=== PATIENT | female | born 1980 | race Two or more races ===

== ENCOUNTER → 2024-04-05 | Outpatient (CLI) | payer OTHER ==
[2024-04-05 13:33] LABS: Basophils # (auto) 0 10 ^3/uL (0-0.2); Basophils % (auto) 0.5 % (0.0-2.0); Eosinophils # (auto) 0 10 ^3/uL (0-0.8); Eosinophils % (auto) 0.7 % (0.0-7.0); Hematocrit 41.1 % (36.0-46.0); Hemoglobin 14.1 g/dL (12.2-16.2); Lymphocytes # (auto) 1.1 10 ^3/uL (0.4-5.4); Lymphocytes % (auto) 17.2 % (10.0-50.0); Mean Corpuscular Hemoglobin 31.5 pg (28.0-32.0); Mean Corpuscular Hgb Conc. 34.4 g/dL (32.0-36.0); Mean Corpuscular Volume 91.4 fL (80.0-100.0); Monocytes # (auto) 0.4 10 ^3/uL (0-1.3); Monocytes % (auto) 6.4 % (0.0-12.0); Neutrophils % (auto) 75.2 % (37.0-80.0); Platelet Count (auto) 284 10^3/uL (140-450); Red Blood Cells 4.49 10^6/uL (4.0-5.20); Red Cell Distribution Width 12.9 % (11.8-14.3); White Blood Cell 6.6 10^3/uL (4.4-10.8)
[2024-04-05 13:44] LABS: Urine Bacteria FEW /hpf (None Seen); Urine Blood 3+ /uL (Negative); Urine Clarity Cloudy (Clear); Urine Color Yellow (Yellow); Urine Hyaline Cast FEW /lpf (0 - 2); Urine Mucus FEW (None Seen); Urine Protein, UAD 1+ (Negative); Urine Specific Gravity 1.026 (1.001-1.035); Urine Urobilinogen Normal (Negative); Urine WBC 47 /hpf (0 - 5)
[2024-04-05 14:04] LABS: Triglycerides 52 mg/dL (< 150)
[2024-04-05 14:05] LABS: Cholesterol 154 mg/dL (< 200); LDL Cholesterol 94 mg/dL (< 100)
[2024-04-05 14:06] LABS: HDL Cholesterol 50 mg/dL (40-59)
[2024-04-05 14:09] LABS: Follicle Stimulating Hormone 0.88 IU/L (SEE BELOW)
[2024-04-05 14:10] LABS: Thyroid Stimulating Hormone 0.98 uIU/mL (0.55-4.78)
[2024-04-05 14:18] LABS: Beta HCG, Quantitative 21414.2 mIU/mL (1.5-4.2)
[2024-04-08 08:35] LABS: Hepatitis B Surface Antigen Negative (Negative)
[2024-04-08 08:55] LABS: Hepatitis A Ab IgM Negative
[2024-04-08 08:56] LABS: Hepatitis B Core IgM Negative; Hepatitis C Antibody Negative (Negative)
== END | disposition home or self-care (01) ==
LOC: LAB 13:05
PROVIDERS: ATTEND Internal Medicine
DX: Z32.01 Encounter for pregnancy test, result positive (principal); R73.09 Other abnormal glucose; E61.2 Magnesium deficiency; E55.9 Vitamin D deficiency, unspecified; E79.0 Hyperuricemia without signs of inflammatory arthritis and tophaceous disease; D51.9 Vitamin B12 deficiency anemia, unspecified; R94.6 Abnormal results of thyroid function studies; R82.79 Other abnormal findings on microbiological examination of urine; R82.91 Other chromoabnormalities of urine; R82.90 Unspecified abnormal findings in urine
CPT/HCPCS: 36415; 80061; 80074; 81001; 82306; 82607; 83001; 83036; 84443; 84484; 84702; 85025; 87086